=== PATIENT | female | born 1960 | race African-American/Black ===

== ENCOUNTER 2020-08-24 07:38 | Outpatient (REF) | payer MEDICARE, MEDICAID, SELFPAY | END 2020-08-24 07:39 | disposition home or self-care (01) | LOC: HO.LAB 07:38 | PROVIDERS: Visit Provider Internal Medicine | DX: Z20.828 Contact with and (suspected) exposure to other viral communicable diseases (principal) | CPT/HCPCS: C9803; U0003 ==

== ENCOUNTER 2020-10-22 10:51 | Outpatient (REF) | payer MEDICARE, MEDICAID, SELFPAY | END 2020-10-22 10:52 | disposition home or self-care (01) | LOC: HO.LAB 10:51 | PROVIDERS: Visit Provider Internal Medicine | DX: Z20.822 Contact with and (suspected) exposure to COVID-19 (principal) | CPT/HCPCS: 36415; C9803; U0003; U0005 ==